=== PATIENT | male | born 1950 | race Caucasian/White ===

== ENCOUNTER 2022-02-27 11:28 | Emergency (ER) | payer OTHER ==
--- OUTSIDE RECORDS SUMMARY | 2022-02-27 11:35 | XMS REPORT | Continuity of Care Document ---
:1950 Author Organization [facility] t Address [facility]3 Santosh Jones [address] [place] [id number] Care Team Providers Name Role Phone [email or web address] Attending Clinician Unavailable Nell Philippe Attending Clinician [phone] Admitting Clinician Unavailable Payers Payer Name Policy Type Policy Number Effective Date Expiration Date Elyse subramanian MEDICARE B-[place]: [id number] 2014 [id number] Bracketr 00:00:00 - [place] HUMANA (MEDICARE [id number] SUPPLEMENT) Problems This patient has no known problems. Allergies, Adverse Reactions, Alerts This patient has no known allergies or adverse reactions. Social History Smoking Status Start Date Stop Date Source Never Smoker [facility] Medications Ordered Filled Start Stop Current Ordering Indication Dosage Frequency Signature Comments Components Source Medication Medication Date Date Medication? Clinician (SIG) Name Name Augmentin Augmentin No 1 Q12H Augmentin Dispatc 875 mg-125 875 mg-125 875 mg-125 h mg tablet mg tablet mg tablet Health Take 1 Take 1 Take 1 tablet tablet tablet every 12 every 12 every 12 hours by hours by hours by oral route oral route oral route for 10 for 10 for 10 days. days. days. tamsulosin tamsulosin No tamsulosin Dispatc 0.4 mg 0.4 mg 0.4 mg h capsule capsule capsule Health Vital Signs Vital Name Observation Time Observation Value Comments Source BP Diastolic 2021-01-13 00:00:00 76 mm[Hg] [facility] BP Systolic 2021-01-13 00:00:00 160 mm[Hg] [place] Procedures This patient has no known procedures. Plan of Care Planned Activity Planned Date Details Comments Source Diagnostic Test Pending 2021-01-13 unlisted lab [[facility] 00:[facility]:00 = unlisted lab] Instructions Dispatch Health Encounters Start End Encounter Admission Attending Care Care Encounter Source Date/Time Date/Time Type Type Clinicians Facility Department ID 2021-01-17 2021-01-17 Outpatient [id number] DISP DISP [id number] Dispatc 09:22:00 09:22:00 [id number] h Health 2021-01-16 2021-01-16 Outpatient [id number] DISP DISP [id number] Dispatc 05:23:00 05:23:00 [id number] h Health 2021-01-15 2021-01-15 Outpatient [id number] DISP DISP [id number] Dispatc 11:51:00 11:51:00 [id number] h Health 2021-01-13 2021-01-13 Outpatient [id number] DISP DISP [id number] Dispatc 09:46:00 09:46:00 [id number] h [facility] 2021-01-13 2021-01-13 Nell [place]AD[place]O [place] - [id number] D ispatc 00:00:00 00:00:00 [facility] [place] [facility] SOFTWARE TEST ENGINEER: [address] [facility] - a [address] [address] , Ph. [phone] 2021-01-13 2021-01-13 Outpatient Jose Martin DISP DISP [id number] 00:00:00 00:00:00 Nell [id number] Results This patient has no known results.
[2022-02-27 12:45] LABS: Absolute Lymphocytes (CBC) 1.6 K/uL (0.7-4.9); Hematocrit 46.8 % (39.6-49.0); Lymphocytes % 23.9 % (15.3-44.8); MCV 91.7 fL (80-100); MPV 7.7 fL (7.6-11.3); RBC Red Blood Cell Count 5.11 M/uL (4.33-5.43)
[2022-02-27 12:59] LABS: Albumin 3.6 g/dL (3.4-5.0); Bilirubin Total 0.5 mg/dL (0.2-1.0); C-Reactive Protein 3.15 mg/L (<3.00); Protein, Total 7.4 g/dL (6.4-8.2); Troponin High Sensitivity 7.5 pg/mL (<58.9)
--- NOTE | 2022-02-27 13:58 | EDPHYS ---
Physician Documentation [facility] Name: Obi Veras Age: 71 yrs Sex: Male : 1950 Arrival Date: 02/27/2022 Time: 11:34 Bed 23 Private MD: WANDY Physician Mike Slaughter HPI: 02/27 12:11 This 71 yrs old Male presents to ER via Ambulatory with complaints of General Weakness. jmm 12:11 Is a 71-year-old male with history of anxiety the presents emerged part with complaints jmm of joint pain, body aches beginning approximately 2 to 3 weeks ago. Patient states he initially attributed to playing softball but he states he does this activity quite regularly. Denies fever or chills. Denies known injury.. Historical: - Allergies: 11:48 No Known Allergies; aa5 - PMHx: 11:48 Anxiety; aa5 - PSHx: 11:49 Right rotator cuff; aa5 11:49 Cholecystectomy; aa5 - Immunization history:: Adult Immunizations unknown. - Social history:: Smoking status: Patient denies any tobacco usage or history of. ROS: 12:11 Constitutional: Negative for fever, chills, and weight loss, Cardiovascular: Negative jmm for chest pain, palpitations, and edema, Respiratory: Negative for shortness of breath, cough, wheezing, and pleuritic chest pain. 12:11 MS/extremity: Positive for pain. 12:11 All other systems are negative. Exam: 12:11 Constitutional: This is a well developed, well nourished patient who is awake, alert, jmm and in no acute distress. Head/Face: atraumatic. Eyes: EOMI, no conjunctival erythema appreciated ENT: Moist Mucus Membranes Neck: Trachea midline, Supple Chest/axilla: Normal chest wall appearance and motion. Cardiovascular: Regular rate and rhythm. No edema appreciated Respiratory: Normal respirations, no respiratory distress appreciated Abdomen/GI: Non distended Back: Normal ROM Skin: General appearance color normal MS/ Extremity: Moves all extremities, no obvious deformities appreciated, no edema noted to the lower extremities Neuro: Awake and alert Psych: Behavior is normal, Mood is normal, Patient is cooperative and pleasant Vital Signs: 11:45 BP 179 / 103; Pulse 68; Resp 16 S; Temp 97.8(TE); Pulse Ox 100% on R/A; Weight 79.38 kg aa5 (R); Height 5 ft. 10 in. (177.80 cm) (R); 12:15 BP 186 / 88; Pulse 65; Resp 18; Pulse Ox 99% on R/A; Pain 6/10; eh3 13:15 BP 172 / 92; Pulse 64; Resp 18; Pulse Ox 100% on R/A; eh3 14:15 BP 158 / 86; Pulse 65; Resp 18; Pulse Ox 100% on R/A; eh3 11:45 Body Mass Index 25.11 (79.38 kg, 177.80 cm) aa5 MDM: 12:12 Patient medically screened. [facility] 13:48 Data reviewed: vital signs, nurses notes. Counseling: I had a detailed discussion with [facility] the patient and/or guardian regarding: the historical points, exam findings, and any diagnostic results supporting the discharge/admit diagnosis, the need for outpatient follow up, to return to the emergency department if symptoms worsen or persist or if there are any questions or concerns that arise at home. 19:43 ED course: Labs unremarkable. Patient states he had a previous episode which was [facility] relieved with IM steroids. Patient advised to follow-up with PCP for possible autoimmune panel work-up. Patient otherwise given strict return precautions. Patient understood agrees plan of care.. 02/27 12:11 Order name: CBC with Diff; Complete Time: 13:00 [facility] 02/27 12:11 Order name: CMP; Complete Time: 13:00 [facility] 02/27 12:11 Order name: CRP; Complete Time: 13:00 [facility] 02/27 12:11 Order name: ESR; Complete Time: 13:00 [facility] 02/27 12:11 Order name: Troponin High Sensitivity; Complete Time: 13:00 [facility] 02/27 12:11 Order name: Saline Lock; Complete Time: 12:34 [facility] Administered Medications: 14:25 Drug: Decadron - Dexamethasone 10 mg Route: IVP; Site: right forearm; [facility] 14:30 Follow up: Response: Medication administered at discharge. 3 Disposition Summary: 02/27/22 13:57 Discharge Ordered Location: Home [facility] Condition: Stable [facility] Diagnosis - Other malaise and fatigue [facility] Followup: [facility] - With: Private Physician - When: 2 - 3 days - Reason: Recheck today's complaints, Continuance of care, Re-evaluation by your physician Discharge Instructions: - Discharge Summary Sheet diana - Fatigue abigail Forms: - Medication Reconciliation Form diana - Thank You Letter diana - Antibiotic Education diana - Prescription Opioid Use diana Prescriptions: - Prednisone 20 mg Oral Tablet - take 3 tablets by ORAL route once daily for 5 days; 15 tablet; Refills: 0, [facility] Product Selection Permitted - orphenadrine citrate 100 mg Oral Tablet Sustained Release - take 1 tablet by ORAL route 2 times per day As needed; 20 tablet; Refills: 0, [facility] Product Selection Permitted Signatures: Dispatcher [employer] EDaTrun Segal PA PA jmm Calderon, Audri, RN RN aa5 Luana Lee RN RN eh3
--- NOTE | 2022-02-27 13:58 | ER ---
Nurse's Notes [facility] Name: Obi Veras Age: 71 yrs Sex: Male : 1950 Arrival Date: 02/27/2022 Time: 11:34 Bed 23 Private MD: Diagnosis: Other malaise and fatigue Presentation: 02/27 11:45 Chief complaint: Patient states: "I just don't feel good, all my joints hurt, and I aa5 feel no energy". Pt reports symptoms began 2-4 weeks ago. Coronavirus screen: muscle pain. Ebola Screen: Patient denies travel to an Ebola-affected area in the 21 days before illness onset. Initial Sepsis Screen: Does the patient meet any 2 criteria? No. Patient's initial sepsis screen is negative. Does the patient have a suspected source of infection? No. Patient's initial sepsis screen is negative. Risk Assessment: Do you want to hurt yourself or someone else? Patient reports no desire to harm self or others. Onset of symptoms was 2021. 11:45 Method Of Arrival: Ambulatory aa5 11:45 Acuity: MONIQUE 3 aa5 Historical: - Allergies: 11:48 No Known Allergies; aa5 - PMHx: 11:48 Anxiety; aa5 - PSHx: 11:49 Right rotator cuff; aa5 11:49 Cholecystectomy; aa5 - Immunization history:: Adult Immunizations unknown. - Social history:: Smoking status: Patient denies any tobacco usage or history of. Screenin:15 [facility] ED Fall Risk Assessment (Adult) History of falling in the last 3 months, eh3 including since admission No falls in past 3 months (0 pts) Confusion or Disorientation No (0 pts) Intoxicated or Sedated No (0 pts) Impaired Gait No (0 pts) Mobility Assist Device Used No (0 pt) Altered Elimination No (0 pt) Score/Fall Risk Level 0 - 2 = Low Risk. Abuse screen: Denies threats or abuse. Denies injuries from another. Nutritional screening: No deficits noted. Tuberculosis screening: No symptoms or risk factors identified. Assessment: 12:15 General: Appears in no apparent distress. uncomfortable, Behavior is calm, cooperative, eh3 appropriate for age. Pain: Complains of pain in pelvis, left leg, lumbar area, left low back and right low back Quality of pain is described as aching, Pain began 1 month ago Is continuous, Alleviated by nothing. Aggravated by increased activity. Neuro: Level of Consciousness is awake, alert, obeys commands, Oriented to person, place, time, situation. Cardiovascular: Capillary refill < 3 seconds Patient's skin is warm and dry. Respiratory: Airway is patent Respiratory effort is even, unlabored, Respiratory pattern is regular, symmetrical. GI: No signs and/or symptoms were reported involving the gastrointestinal system. Abdomen is flat, non-distended. : Reports pain in pelvis, pt states he suspects it may be prostate-related. EENT: No signs and/or symptoms were reported regarding the EENT system. Derm: No signs and/or symptoms reported regarding the dermatologic system. Musculoskeletal: Circulation, motion, and sensation intact. Range of motion: intact in all extremities, Reports generalized weakness. 13:15 Reassessment: Patient appears in no apparent distress at this time. Patient and/or eh3 family updated on plan of care and expected duration. Pain level reassessed. Patient is alert, oriented x 3, equal unlabored respirations, skin warm/dry/pink. 14:15 Reassessment: Patient appears in no apparent distress at this time. Patient and/or eh3 family updated on plan of care and expected duration. Pain level reassessed. Patient is alert, oriented x 3, equal unlabored respirations, skin warm/dry/pink. Vital Signs: 11:45 BP 179 / 103; Pulse 68; Resp 16 S; Temp 97.8(TE); Pulse Ox 100% on R/A; Weight 79.38 kg aa5 (R); Height 5 ft. 10 in. (177.80 cm) (R); 12:15 BP 186 / 88; Pulse 65; Resp 18; Pulse Ox 99% on R/A; Pain 6/10; eh3 13:15 BP 172 / 92; Pulse 64; Resp 18; Pulse Ox 100% on R/A; eh3 14:15 BP 158 / 86; Pulse 65; Resp 18; Pulse Ox 100% on R/A; eh3 11:45 Body Mass Index 25.11 (79.38 kg, 177.80 cm) aa5 ED Course: 11:34 Patient arrived in ED. rg4 11:39 Tarun Johnson PA is PHCP. jmm 11:39 Mike Slaughter MD is Attending Physician. [facility] 11:48 Triage completed. aa5 11:48 Arm band placed on. aa5 12:15 Patient has correct armband on for positive identification. Bed in low position. Call 3 light in reach. Side rails up X2. Pulse ox on. NIBP on. Door closed. Noise minimized. Warm blanket given. 12:15 Inserted saline lock: 20 gauge in right forearm, using aseptic technique. Blood 3 collected. 12:19 Luana Lee, RN is Primary Nurse. 3 14:45 No provider procedures requiring assistance completed. IV discontinued, intact, eh3 bleeding controlled, No redness/swelling at site. Pressure dressing applied. Administered Medications: 14:25 Drug: Decadron - Dexamethasone 10 mg Route: IVP; Site: right forearm; eh3 14:30 Follow up: Response: Medication administered at discharge. eh3 Medication: 15:39 VIS not applicable for this client. eh3 Outcome: 13:57 Discharge ordered by . [facility] 14:45 Discharged to home ambulatory. 3 14:45 Condition: stable 14:45 Discharge instructions given to patient, Instructed on discharge instructions, follow up and referral plans. Demonstrated understanding of instructions, follow-up care, medications, Prescriptions given X 2. 14:50 Patient left the ED. 3 Signatures: Tarun Johnson PA PA jmm Calderon, Audri, RN RN [id number] Frances Osborne 4 Luana Lee, RN RN 3 Corrections: (The following items were deleted from the chart) 11:49 11:45 Pulse 68bpm; Resp 16bpm; Spontaneous; Pulse Ox 100% RA; Temp 97.8F Temporal; aa5 79.38 kg Reported; Height 5 ft. 10 in. Reported; BMI: 25.1; aa5
[2022-02-27] MEDS ORDERED: dexAMETHasone 10 MG/ML VIAL ONE (14:13)
[2022-02-27 14:57] VITALS: TEMP 97.8
[2022-02-27 15:15] VITALS: BP 186/88; O2SAT 99
== END 2022-02-27 14:50 | disposition home or self-care (01) ==
LOC: ER 11:28
DX: R53.81 Other malaise (principal); R53.83 Other fatigue; R53.1 Weakness
CPT/HCPCS: 85025; 36415; 85652; 84484; 80053; 86140; 96374; 99284; J1100